=== PATIENT | male | born 1980 | race Caucasian/White ===

== ENCOUNTER 2018-01-20 17:12 | Emergency (ER) | payer BC ==
[2018-01-20] MEDS ORDERED: BABY ASPIRIN 81 MG CHEW PO ONE (18:03)
--- NOTE | 2018-01-20 18:03 | ERPHSYRPT ---
- History of Present Illness Time Seen by Provider: 01/20/18 17:56 Historian: patient Exam Limitations: no limitations Patient Subjective Stated Complaint: Pt states "Last saturday I was lifting something and heard a loud pop and my left chest started to hurt. That went away and today I was working and all of a sudden my chest exploded with pain and i had a hard time breathing." Triage Nursing Assessment: Pt alert and oriented X 3, skin pwd pt ambulates with an upright steady gait, able to speak in clear full sentences. No apparent respiratory distress. Physician History: The patient complains of chest pain on the left side that began Saturday when he was under a lawnmower and pushed up to move apart on the machine. It was a sudden popping feeling. The pain has been minimal but he is worsened with deep breathing and coughing. Today he was at work and when he was lifting a heavy tire he had more chest pain in the same area. Again it hurts more to move the chest, take a deep breath, or cough. His past medical history is unremarkable. Timing/Duration: day(s) (3) Activities at Onset: activity Quality: sharpness Location: central (left side) Chest Pain Radiation: no radiation Severity of Pain-Max: moderate Severity of Pain-Current: moderate Modifying Factors: Improves With: breathing, coughing Associated Symptoms: hurts to breathe Prior Chest Pain/Cardiac Workup: no prior chest pain Nitro Today/Relief: no nitro taken today Aspirin Treatment Today: no aspirin today Allergies/Adverse Reactions: Antihistamines - Alkylamine Allergy (Intermediate, Verified 01/20/18 17:21) Home Medications: No Reportable Medications [No Reported Medications] 01/20/18 [History] Hx Tetanus, Diphtheria Vaccination/Date Given: No Hx Influenza Vaccination/Date Given: No Hx Pneumococcal Vaccination/Date Given: No Immunizations Up to Date: Yes - Review of Systems Constitutional: No Fever, No Chills Eyes: No Symptoms Ears, Nose, & Throat: No Symptoms Respiratory: No Cough, No Dyspnea Cardiac: Chest Pain Abdominal/Gastrointestinal: No Abdominal Pain, No Nausea, No Vomiting, No Diarrhea Genitourinary Symptoms: No Dysuria Musculoskeletal: Injury Skin: No Rash Neurological: No Dizziness, No Focal Weakness, No Sensory Changes Psychological: No Symptoms Endocrine: No Symptoms Hematologic/Lymphatic: No Symptoms Immunological/Allergic: No Symptoms All Other Systems: Reviewed and Negative - Past Medical History Pertinent Past Medical History: Yes Other Medical History: pulmonary heart valves - Past Surgical History Past Surgical History: Yes Other Surgical History: left arm. shoulder bilat - Social History Smoking Status: Former smoker Exposure to second hand smoke: Yes Drug Use: none Patient Lives Alone: No - Nursing Vital Signs Nursing Vital Signs: Initial Vital Signs Temperature 98.0 F 01/20/18 17:14 Pulse Rate 70 01/20/18 17:14 Respiratory Rate 16 01/20/18 17:14 Blood Pressure 143/88 01/20/18 17:14 O2 Sat by Pulse Oximetry 99 01/20/18 17:14 Pain Scale Pain Intensity 3 - Physical Exam General Appearance: no apparent distress, alert Eye Exam: PERRL/EOMI, eyes nml inspection Ears, Nose, Throat Exam: normal ENT inspection, moist mucous membranes Neck Exam: normal inspection, non-tender, supple, full range of motion Respiratory Exam: chest tenderness (palpation of left anterior chest reproduces pain.) Cardiovascular Exam: regular rate/rhythm, normal heart sounds Gastrointestinal/Abdomen Exam: soft, No tenderness, No mass Rectal Exam: not done Back Exam: normal inspection, No CVA tenderness, No vertebral tenderness Extremity Exam: normal inspection, normal range of motion Neurologic Exam: alert, oriented x 3, cooperative, normal mood/affect, sensation nml, No motor deficits Skin Exam: normal color, warm, dry SpO2 Interpretation: normal SpO2: 99 Oxygen Delivery: Room Air - Course EKG Interpreted by Me: RATE, Sinus Rhythm, NORMAL AXIS, NORMAL INTERVALS, NORMAL QRS, NORMAL ST-T - Radiology Exams Left Ribs X-ray Interpretation: Interpreted by me, Negative, No Fracture Chest X-ray Interpretation: Interpreted by me, Negative Ordered Tests: Active Orders 24 hr Category Date Time Status EKG-ER Only STAT Care 01/20/18 18:03 Active IV Insertion STAT Care 01/20/18 18:03 Active Pulse Oximetry (ED) STAT Care 01/20/18 18:03 Active CHEST 2 VIEWS (PA AND LAT) Stat Exams 01/20/18 18:24 Taken RIBS UNILATERAL Stat Exams 01/20/18 18:04 Taken CBC W DIFF Stat Lab 01/20/18 18:08 Completed CMP Stat Lab 01/20/18 18:08 Completed TROPONIN Q3H Lab 01/20/18 18:08 Completed TROPONIN Q3H Lab 01/20/18 21:15 Ordered TROPONIN Q3H Lab 01/21/18 00:15 Ordered TROPONIN Q3H Lab 01/21/18 03:15 Ordered TROPONIN Q3H Lab 01/21/18 06:15 Ordered Medication Summary Discontinued Medications Generic Name Dose Route Start Last Admin Trade Name Akiq PRN Reason Stop Dose Admin Aspirin 324 mg 01/20/18 18:03 01/20/18 18:34 Baby Aspirin 81 Mg Chew PO 01/20/18 18:04 324 mg STAT ONE Administration Aspirin Confirm 01/20/18 18:33 Baby Aspirin 81 Mg Chew Administered 01/20/18 18:34 Dose 324 mg .ROUTE .STK-MED ONE Lab/Rad Data: Laboratory Result Diagrams 01/20/18 18:08 01/20/18 18:08 Laboratory Results 01/20/18 01/20/18 01/20/18 Range/Units 18:08 18:08 18:08 WBC 6.1 (4.0-10.5) K/mm3 RBC 4.68 (4.1-5.6) M/mm3 Hgb 13.7 (12.5-18.0) gm/dl Hct 43.0 (42-50) % MCV 91.9 (78-100) fl MCH 29.3 (26-32) pg MCHC 31.9 L (32-36) g/dl RDW 13.8 (11.5-14.0) % Plt Count 188 (150-450) K/mm3 MPV 12.0 H (6-9.5) fl Gran % 61.8 (36.0-66.0) % Eos # (Auto) 0.08 (0-0.5) Absolute Lymphs (auto) 1.63 (1.0-4.6) Absolute Monos (auto) 0.60 (0.0-1.3) Lymphocytes % 26.6 (24.0-44.0) % Monocytes % 9.8 (0.0-12.0) % Eosinophils % 1.3 (0.00-5.0) % Basophils % 0.5 (0.0-0.4) % Absolute Granulocytes 3.79 (1.4-6.9) Basophils # 0.03 (0-0.4) Sodium 142 (137-145) mmol/L Potassium 4.0 (3.5-5.1) mmol/L Chloride 103 (98-107) mmol/L Carbon Dioxide 27 (22-30) mmol/L Anion Gap 15.2 H (5-15) MEQ/L BUN 10 (9-20) mg/dL Creatinine 0.92 (0.66-1.25) mg/dL Estimated GFR > 60.0 ML/MIN Glucose 96 (74-106) mg/dL Calcium 9.3 (8.4-10.2) mg/dL Total Bilirubin 1.40 H (0.2-1.3) mg/dL AST 32 (17-59) U/L ALT 25 (0-50) U/L Alkaline Phosphatase 79 (38-126) U/L Troponin I < 0.012 (0.000-0.034) ng/mL Serum Total Protein 7.2 (6.3-8.2) g/dL Albumin 4.4 (3.5-5.0) g/dL - Progress Progress: unchanged Air Movement: good Blood Culture(s) Obtained: No Antibiotics given: No Counseled pt/family regarding: lab results, diagnosis, rad results - Departure Time of Disposition: 18:42 Departure Disposition: Home Clinical Impression: Musculoskeletal chest pain Condition: Stable Critical Care Time: No Referrals: CONOR SCHULZ [Primary Care Provider] - Additional Instructions: You have musculoskeletal chest pain. You were given Toradol 30 mg IV in the ER. You're also given aspirin 324 mg orally. For further pain, take Tylenol 1000 mg and ibuprofen 800 mg every 8 hours as needed. Follow-up in one to 2 days if the pain has not improved.
[2018-01-20 18:13] LABS: BASOPHIL % 0.5 % (0.0-0.4); Basophil (Absolute #) 0.03 (0-0.4); Eosinophil % 1.3 % (0.00-5.0); Eosinophil (Absolute #) 0.08 (0-0.5); Granulocyte Absolute (ANC) 3.79 (1.4-6.9); Granulocytes % 61.8 % (36.0-66.0); Hemoglobin 13.7 gm/dl (12.5-18.0); Lymphocyte (Absolute #) 1.63 (1.0-4.6); Lymphocytes % 26.6 % (24.0-44.0); Mean Cell Volume 91.9 fl (78-100); Mean Corpuscular Hemoglobin 29.3 pg (26-32); Mean Corpuscular Hgb Concent. 31.9 g/dl (32-36); Monocytes % 9.8 % (0.0-12.0); Platelet Count 188 K/mm3 (150-450); Red Blood Count 4.68 M/mm3 (4.1-5.6); Red Cell Distribution Width 13.8 % (11.5-14.0); White Blood Count 6.1 K/mm3 (4.0-10.5)
[2018-01-20 18:24] LABS: ALBUMIN 4.4 g/dL (3.5-5.0); ALKALINE PHOSPHATASE 79 U/L (38-126); ANION GAP 15.2 MEQ/L (5-15); BLOOD UREA NITROGEN 10 mg/dL (9-20); CHLORIDE 103 mmol/L (98-107); Calcium 9.3 mg/dL (8.4-10.2); Carbon Dioxide 27 mmol/L (22-30); Creatinine 1 0.92 mg/dL (0.66-1.25); Glucose 96 mg/dL (74-106); SGOT/AST 32 U/L (17-59); SGPT/ALT 25 U/L (0-50); SODIUM 142 mmol/L (137-145); Total Protein 7.2 g/dL (6.3-8.2)
[2018-01-20] MEDS ORDERED: BABY ASPIRIN 81 MG CHEW ONE (18:33)
[2018-01-20] MEDS ORDERED: TORAdol 30 mg Injection IV ONE (18:42)
[2018-01-20 18:48] VITALS: BP 142/91; PULSE 56; O2SAT 98
[2018-01-20] MEDS ORDERED: TORAdol 30 mg Injection ONE (18:49)
--- NOTE | 2018-01-21 08:35 | XRAY ---
Indication: Left-sided pain following lifting injury. Comparison: November 09, 2009. PA/lateral chest again demonstrates normal heart and lungs with a few incidental calcified granulomas. Bony thorax intact. No new/acute findings. Impression: Stable nonacute chest with again evidence for old granulomatous disease.
--- NOTE | 2018-01-21 08:35 | XRAY ---
Indication: Pain following lifting injury. Comparison: None 2 views of the left ribs demonstrates a few pulmonary calcified granulomas and mild AC degenerative arthropathy. No other bony, articular, or soft tissue abnormalities.
== END 2018-01-20 18:58 | disposition home or self-care (01) ==
LOC: ED 17:12
DX: R07.89 Other chest pain (principal)
CPT/HCPCS: 36000; 36415; 71046; 71100; 80053; 84484; 85025; 93005; 96374; 99284; J1885; A9270-GY

== ENCOUNTER 2019-09-16 14:25 | Emergency (ER) | payer BC, OTHER ==
[2019-09-16] MEDS ORDERED: XYLOCAINE 1% HCL 20 ML MDV SUBDERMAL ONE (14:35)
--- NOTE | 2019-09-16 14:35 | ERPHSYRPT ---
- History of Present Illness Time Seen by Provider: 09/16/19 14:25 Source: patient Exam Limitations: no limitations Physician History: laceration to the dorsum of the right middle finger and there mild damage to the nail of the right index finger. It happened just prior to arrival, accidentally cut with a knife opening Ga presents. Occurred: just prior to arrival Method of Injury: incised Quality: constant Severity of Pain-Max: moderate Severity of Pain-Current: moderate Extremities Pain Location: 2nd finger: right, 3rd finger: right Modifying Factors: Improves With: movement Associated Symptoms: none Allergies/Adverse Reactions: Antihistamines - Alkylamine Allergy (Intermediate, Verified 01/20/18 17:21) Home Medications: No Reportable Medications [No Reported Medications] 01/20/18 [History] Hx Tetanus, Diphtheria Vaccination/Date Given: No Hx Influenza Vaccination/Date Given: No Hx Pneumococcal Vaccination/Date Given: No - Review of Systems Constitutional: No Fever, No Chills Eyes: No Symptoms Ears, Nose, & Throat: No Symptoms Respiratory: No Cough, No Dyspnea Cardiac: No Chest Pain, No Edema, No Syncope Abdominal/Gastrointestinal: No Abdominal Pain, No Nausea, No Vomiting, No Diarrhea Genitourinary Symptoms: No Dysuria Musculoskeletal: Other (L. shaped 2.5 cms laceration to the dorsum of the middle of the right middle finger. And the mild damage to the medial aspect of the right index finger nail.), No Back Pain, No Neck Pain Skin: Other (L. shaped 2.5 cms laceration to the dorsum of the middle of the right middle finger. And the mild damage to the medial aspect of the right index finger nail.), No Rash Neurological: No Dizziness, No Focal Weakness, No Sensory Changes Psychological: No Symptoms Endocrine: No Symptoms All Other Systems: Reviewed and Negative - Past Medical History Pertinent Past Medical History: Yes Other Medical History: pulmonary heart valves - Past Surgical History Past Surgical History: Yes Other Surgical History: left arm. shoulder bilat - Social History Smoking Status: Former smoker Exposure to second hand smoke: Yes Drug Use: none Patient Lives Alone: No - Nursing Vital Signs Nursing Vital Signs: Initial Vital Signs Temperature 97.4 F 09/16/19 14:32 Pulse Rate 77 09/16/19 14:32 Respiratory Rate 16 09/16/19 14:32 Blood Pressure 139/92 09/16/19 14:32 O2 Sat by Pulse Oximetry 100 09/16/19 14:32 Pain Scale Pain Intensity 5 - Physical Exam General Appearance: alert Eyes, Ears, Nose, Throat Exam: moist mucous membranes Neck Exam: non-tender, supple Cardiovascular/Respiratory Exam: chest non-tender, normal breath sounds, regular rate/rhythm, no respiratory distress Abdominal Exam: non-tender, No guarding Back Exam: normal inspection, No vertebral tenderness Hand Exam: laceration (L. shaped 2.5 cms laceration to the dorsum of the middle of the right middle finger. And the mild damage to the medial aspect of the right index finger nail., normal distal neurovascular function) Neuro/Tendon Exam: normal sensation, normal motor functions Mental Status Exam: alert, oriented x 3, cooperative Skin Exam: normal color, warm, dry, other (L. shaped 2.5 cms laceration to the dorsum of the middle of the right middle finger. And the mild damage to the medial aspect of the right index finger nail., normal distal neurovascular function) SpO2 Interpretation: normal O2 Delivery: Room Air Procedures - Laceration/Wound Repair Right Upper Dorsal Finger Wound Location: Right, upper arm (L. shaped 2.5 cms laceration to the dorsum of the middle of the right middle finger. And the mild damage to the medial aspect of the right index finger nail., normal distal neurovascular function) Wound Length (cm): 2.5 Wound's Depth, Shape: flap Wound Explored: clean Irrigated: No Hibiclens Prep: Yes Anesthesia: digital block, 1% Lidocaine (10) Volume Anesthetic (ccs): 10 Wound Repaired With: sutures Suture Size/Type: 4-0, ethilon Number of Sutures: 5 Layer Closure?: No Sterile Dressing Applied?: Yes Splint Applied?: Yes Type of Splint Applied: Aluminium metal finger splint Sling Applied?: No Progress: 09/16/19 15:01 Good - Course Nursing assessment & vital signs reviewed: Yes Ordered Tests: Active Orders 24 hr Category Date Time Status Dressing Care ROUTINE Care 09/16/19 14:36 Active Sutures STAT Care 09/16/19 14:36 Active Medication Summary Discontinued Medications Generic Name Dose Route Start Last Admin Trade Name Freq PRN Reason Stop Dose Admin Bacitracin Zinc 0.9 gm 09/16/19 14:36 09/16/19 14:53 Baciguent Packet TP 09/16/19 14:37 0.9 gm STAT ONE Administration Bacitracin Zinc Confirm 09/16/19 14:52 Baciguent Packet Administered 09/16/19 14:53 Dose 1 gm .ROUTE .STK-MED ONE Lidocaine HCl 10 ml 09/16/19 14:35 09/16/19 14:51 Xylocaine 1% Hcl 20 Ml Mdv SUBDERMAL 09/16/19 14:36 10 ml STAT ONE Administration Lidocaine HCl Confirm 09/16/19 14:36 Xylocaine 1% Hcl 20 Ml Mdv Administered 09/16/19 14:37 Dose 10 ml .ROUTE .STK-MED ONE - Progress Progress: improved Progress Note: 09/16/19 15:01 right middle finger laceration was sutured by me in the ER. Minor damage to the medial aspect of the right index finger nail does not need any treatment. We will dress the wound. The metal splint applied to the right middle finger. Counseled pt/family regarding: diagnosis, need for follow-up (suture removal in 7-10 days by PCP or ER.) - Departure Departure Disposition: Home Clinical Impression: Finger laceration Qualifiers: Encounter type: initial encounter Finger: middle finger Damage to nail status: without damage Foreign body presence: without foreign body Laterality: right Qualified Code(s): S61.212A - Laceration without foreign body of right middle finger without damage to nail, initial encounter Condition: Good Critical Care Time: No Referrals: CONOR SCHULZ [Primary Care Provider] - 09/25/19 Instructions: Wound Care (DC), Laceration Repair With Stitches (DC) Additional Instructions: see PCP in case of any signs of infection.
[2019-09-16] MEDS ORDERED: BACIGUENT PACKET TP ONE (14:36)
[2019-09-16] MEDS ORDERED: XYLOCAINE 1% HCL 20 ML MDV ONE (14:36)
[2019-09-16 14:48] VITALS: BP 139/92; PULSE 77; O2SAT 100
[2019-09-16] MEDS ORDERED: BACIGUENT PACKET ONE (14:52)
== END 2019-09-16 15:10 | disposition home or self-care (01) ==
LOC: ED 14:25
DX: S61.212A Laceration without foreign body of right middle finger without damage to nail, initial encounter (principal)
CPT/HCPCS: 12001; 99283; A9270-GY

== ENCOUNTER 2025-06-08 18:29 | Emergency (ER) | payer SELFPAY ==
[2025-06-08 18:52] VITALS: TEMP 98.2
--- NOTE | 2025-06-08 18:54 | ERPHSYRPT ---
- History of Present Illness Time Seen by Provider: 06/08/25 18:54 Historian: patient, family Exam Limitations: no limitations Patient Subjective Stated Complaint: patietn starting having pain and noticed umbilical hernia about a year ago and in past few weeks knot is getting bigger nad its becoming painful Triage Nursing Assessment: pt is alert and orientedx3, able to stand by extremely weak, having severe pain in abdomen region where umbilical hernia is. patient drove him to ED he was at work today and lifting something then all sudden began experiencing sudden extreme pain. skin warm dry and intact, has large umbilical hernia, patient states developed about a year ago and has been getting larger nad is having more pain with it. Patient supposed to meet with Dr. Valdovinos tomorrow regarding umbilical hernia Physician History: This is a 45-year-old white male patient brought to the emergency department by private vehicle accompanied by his significant other with a complaint of enlarging umbilical hernia over the last year. However in the last several days and, including today, there was increasing pain in the umbilical region. The patient has an appointment to see a general surgeon tomorrow, 06/09/2025. However, at work today there was severe sudden localized pain in the area of the umbilical hernia when lifting a very heavy object. She has had no vomiting or diarrhea symptoms. Activities at Onset: none Quality: sharpness, stabbing Abdominal Pain Onset Location: periumbilical Pain Radiation: no radiation Severity of Pain-Max: moderate Severity of Pain-Current: moderate Modifying Factors: Improves With: nothing Associated Symptoms: denies symptoms Previous symptoms: same symptoms as today, no recent treatment Allergies/Adverse Reactions: Antihistamines - Alkylamine Allergy (Intermediate, Verified 01/20/18 17:21) Home Medications: No Reportable Medications [No Reported Medications] 01/20/18 [History] Hx Tetanus, Diphtheria Vaccination/Date Given: No Hx Influenza Vaccination/Date Given: No Hx Pneumococcal Vaccination/Date Given: No Travel Risk - International Travel Have you traveled outside of the country in past 3 weeks: No - Emerging Infectious Disease Are you exhibiting symptoms associated with any current EIDs: No - Review of Systems Constitutional: No Symptoms Eyes: No Symptoms Ears, Nose, & Throat: No Symptoms Respiratory: No Symptoms Cardiac: No Symptoms Abdominal/Gastrointestinal: Abdominal Pain (Umbilical hernia tenderness) Genitourinary Symptoms: No Symptoms Musculoskeletal: No Symptoms Skin: No Symptoms Neurological: No Symptoms Psychological: No Symptoms Endocrine: No Symptoms Hematologic/Lymphatic: No Symptoms Immunological/Allergic: No Symptoms All Other Systems: Reviewed and Negative - Past Medical History Pertinent Past Medical History: Yes Other Medical History: pulmonary heart valves - Past Surgical History Past Surgical History: Yes Other Surgical History: left arm. shoulder bilat - Social History Smoking Status: Former smoker Exposure to second hand smoke: Yes Drug Use: none - Social Determinants of Health Will the patient participate in the screening: Declined to provide - Nursing Vital Signs Nursing Vital Signs: Initial Vital Signs Temperature 98.4 F 06/08/25 18:41 Pulse Rate 63 06/08/25 18:41 Respiratory Rate 16 06/08/25 18:41 Blood Pressure 155/106 06/08/25 18:41 O2 Sat by Pulse Oximetry 98 06/08/25 18:41 Pain Scale Pain Intensity 6 - Physical Exam General Appearance: no apparent distress, alert Eye Exam: PERRL/EOMI, eyes nml inspection Ears, Nose, Throat Exam: normal ENT inspection, moist mucous membranes Neck Exam: normal inspection, non-tender, supple, full range of motion Respiratory Exam: normal breath sounds, lungs clear, No chest tenderness, No respiratory distress Cardiovascular Exam: regular rate/rhythm, normal heart sounds, normal peripheral pulses Gastrointestinal/Abdomen Exam: soft, normal bowel sounds, tenderness (In the area of the umbilical hernia), hernia (Umbilical hernia reducible. Defect appears to be approximately 1 to 2 cm. There is tenderness to palpation in this region. There are no skin changes present) Rectal Exam: not done Back Exam: normal inspection, normal range of motion, No CVA tenderness, No vertebral tenderness Extremity Exam: normal inspection, normal range of motion, pelvis stable Neurologic Exam: alert, oriented x 3, cooperative, complaint manager II-XII nml as tested, nml cerebellar function, nml station & gait, sensation nml Skin Exam: normal color, warm, dry Lymphatic Exam: adenopathy SpO2 Interpretation: normal SpO2: 96 O2 Delivery: Room Air - Course Nursing assessment & vital signs reviewed: Yes Ordered Tests: Active Orders 24 hr Category Date Time Status ABDOMEN AND PELVIS W/0 CONTRAS [CT] Stat Exams 06/08/25 19:29 Taken Medication Summary Discontinued Medications Generic Name Dose Route Start Last Admin Trade Name Freq PRN Reason Stop Dose Admin Hydrocodone Bitart/Acetaminophen 1 tab 06/08/25 20:22 06/08/25 20:42 Hydrocodone/Apap 5/325 1 Tab Tablet PO 06/08/25 20:23 1 tab STAT ONE Administration Hydrocodone Bitart/Acetaminophen Confirm 06/08/25 20:41 Hydrocodone/Apap 5/325 1 Tab Tablet Administered 06/08/25 20:42 Dose 1 tab .ROUTE .STK-MED ONE - Progress Progress: pain not gone completely, re-examined Progress Note: 06/08/25 20:25 My medical decision making and the assignment of moderate complexity of this patient's medical issue today is based on review of the patient's past medical history, review the patient's medication list, reviewed patient drug allergy list, history present illness and physical findings on examination. The workup in this patient includes CT scan of the abdomen pelvis to evaluate whether or not there is bowel content within the hernia. This will be a CT scan without contrast. Differential diagnosis includes but is not limited to reducible umbilical hernia, incarcerated umbilical hernia with bowel content, umbilical hernia sac with omentum present. 06/08/25 20:[address] scan of the abdomen pelvis without contrast was interpreted by the radiologist and I reviewed the impression. The impression states fatty liver. Small fatty umbilical hernia. Otherwise normal abdominal and pelvic CT scan without contrast Counseled pt/family regarding: diagnosis, need for follow-up, rad results Medical Desision Making - Independent Historian Additional History obtained from: Spouse - Diagnostic Testing Diagnostic test were ordered, analyzed, and reviewed by me: Yes Radiological Interpretation: Reviewed by me, Teleradiologist Report - Risk of complications Low Risk: Low risk of morbidity from additional dx testing or treatment - Departure Departure Disposition: Home Clinical Impression: Umbilical hernia Condition: Stable Critical Care Time: No Referrals: DOCTOR,NO FAMILY [Primary Care Provider, UNKNOWN] - Follow up/PCP as directed Additional Instructions: Keep your appointment with your general surgeon scheduled for tomorrow, 05/30/2025. Avoid lifting anything more than 10 pounds. Call your primary care provider tomorrow, 06/09/2025, to make arrangements for follow-up appointment as an outpatient as well as for outpatient control of your pain.
[2025-06-08 20:28] VITALS: O2SAT 96
[2025-06-08] MEDS ORDERED: NORCO 5/325 MG ONE ×2 (20:41→20:57)
[2025-06-08] MEDS: NORCO 5/325 MG PO ONE ×2 (20:42→20:58)
[2025-06-08 21:05] VITALS: BP 137/92; PULSE 72; RESP 18
--- NOTE | 2025-06-08 21:52 | XRAY ---
Indication: Umbilical hernia. Multiple contiguous axial images obtained through the abdomen and pelvis without contrast. Comparison: None Study slightly degraded by respiration artifact. Lung bases demonstrates tiny right lung calcified granulomas and minimal dependent atelectasis. No infiltrate or effusion. Heart not enlarged. Stomach is distended with food. Noncontrasted stomach and bowel loops appear nonobstructed with normal appendix. Mild diffuse fatty liver. No free fluid/air. Remaining liver, gallbladder, pancreas, spleen, adrenal glands, kidneys, ureters, and bladder are unremarkable for noncontrast exam. Very minimal distal aortic calcifications without AAA. Osseous structures intact with minimal levoscoliosis centered at L3. Small fatty umbilical and small fatty right inguinal hernias. Impression: 1. Mild respiration artifact. 2. Chronic findings including fatty liver, arteriosclerotic disease, levoscoliosis, small fatty umbilical hernia, and small fatty right inguinal hernia. 3. No acute intra-abdominal/pelvic abnormalities on this noncontrast exam.
== END 2025-06-08 21:05 | disposition home or self-care (01) ==
LOC: ED 18:29
DX: K42.9 Umbilical hernia without obstruction or gangrene (principal); R10.33 Periumbilical pain